=== PATIENT | female | born 1970 | race Caucasian/White ===

== ENCOUNTER 2018-04-27 15:53 | Emergency (ER) | payer OTHER ==
--- NOTE | 2018-04-27 16:59 | PDOC ---
History of Present Illness - General Chief Complaint: Blood Pressure Problem Stated Complaint: ABNORMAL EKG Time Seen by Provider: 04/27/18 16:11 History Source: Patient Exam Limitations: Language Barrier - History of Present Illness Initial Comments: 47 yo F w a hx of HTN presents to the ER from her PCP - Dr. Collin Rojas - for asymptomatic high BP. She states nothing is bothering her here in the ED. She denies having a headache, chest pain, SOB, difficulty breathing, abdominal pain, back pain, leg pain, blurry vision. She takes lisinopril 40 mg daily and states she is good about taking her medicine and doesn't miss any doses. She denies recent fevers, chills, or infections, weakness, numbness, tingling, dysuria, frequency, urgency. PCP: Collin Rojas - [phone] Social Hx: Denies smoking, drinking, illicit drug usage PSH: Tubes tied Allergies: NKA, NKDA Meds: Lisinopril 40 mg daily Past History - Past Medical History Allergies/Adverse Reactions: Allergies Allergy/AdvReac Type Severity Reaction Status Date / Time No Known Allergies Allergy Verified 04/27/18 16:25 Home Medications: Ambulatory Orders Lisinopril [Zestril] 40 mg PO DAILY 04/27/18 Review of Systems - Review of Systems Comments:: CONSTITUTIONAL: Absent: fever, no chills, no fatigue EYES: Absent: visual changes ENT: Absent: ear pain, no sore throat CARDIOVASCULAR: Absent: chest pain, no palpitations RESPIRATORY: Absent: cough, no SOB GI: Absent: abdominal pain, no nausea, no vomiting, no constipation, no diarrhea GENITOURINARY: Absent: dysuria, no frequency, no hematuria MUSKULOSKELETAL: Absent: back pain, no arthralgia, no myalgia SKIN: Absent: rash NEURO: Absent: headache *Physical Exam - Physical Exam Comments: BP: 175/110 GENERAL: Well-appearing, well-nourished. No apparent distress. HEENT: Normocephalic, atraumatic. PERRL, EOM intact. CARDIOVASCULAR: Normal S1, S2. Regular rate and rhythm. PULMONARY: Clear to auscultation bilaterally. ABDOMEN: Soft, non-distended, non-tender. EXTREMITIES: Normal ROM in all four extremities. No gross deformities. SKIN: Warm, dry. No rash NEUROLOGICAL: No focal neurological deficits. ED Treatment Course - LABORATORY CBC & Chemistry Diagram: 04/27/18 17:15 04/27/18 17:15 - RADIOLOGY Radiology Studies Ordered: Category Date Time Status CHEST PA & LAT [RAD] Stat Radiology 04/27/18 16:57 Ordered Medical Decision Making - Medical Decision Making 47 yo F w a hx of HTN presents to the ER from her PCP - Dr. Collin Rojas - for asymptomatic high BP. DD includes but not limited to: Stroke, cva, htn emerg/urg, ACS, pulmonary edema /pleural effusion, dissection, asymptomatic HTN. Plan: Cbc, cmp, trop, ua, ekg, cxr, hcg, re-assess. Labs and cxr normal. Will inform patient she needs to goto PCP to have her BP medications changed to get her BP under better control. *DC/Admit/Observation/Transfer Diagnosis at time of Disposition: Asymptomatic hypertension - Discharge Dispostion Disposition: HOME Condition at time of disposition: Stable Decision to Admit order: No - Referrals Referrals: Waylon Clements MD [Staff Physician] - - Patient Instructions Printed Discharge Instructions: Malignant Hypertension, DI for High Blood Pressure Additional Instructions: You came into the ER with high blood pressure. We determined you are not in hypertensive emergency/urgency Please make sure to goto a professor of theatre as an outpatient to be evaluated. We are attaching a number for you to call to schedule an appointment. Please make sure to goto your primary doctor so he can add on extra BP medications because your blood pressure every day is not being well controlled. Come back with any new or worsening concerns. Thank you for coming to the [facility] ED. We hope you feel better soon! Print Language: MACEDONIAN - Post Discharge Activity
[2018-04-27 17:00] VITALS: BMI 21.2
[2018-04-27 17:22] LABS: BASO % 0.4 % (0-2.0); EOS % 0.1 % (0-4.5); HEMATOCRIT 38.9 % (32.4-45.2); HEMOGLOBIN 13.5 GM/dL (10.7-15.3); LYMPH % 19.6 % (8-40); MCH 28.9 pg (25.7-33.7); MCHC 34.8 g/dl (32.0-36.0); MEAN PLT VOLUME 8.4 fl (7.5-11.1); MONO % 5.5 % (3.8-10.2); NEUT % 74.4 % (42.8-82.8); PLATELET COUNT 288 K/MM3 (134-434); RBC 4.69 M/mm3 (3.60-5.2); RDW 13.2 % (11.6-15.6); WHITE BLOOD COUNT 6.6 K/mm3 (4.0-10.0)
[2018-04-27] MEDS ORDERED: SODIUM CHLORIDE 0.9% 500 ML INFUS.BAG IV ONE (17:31)
[2018-04-27 17:53] LABS: URINE APPEARANCE CLEAR; URINE BILIRUBIN NEGATIVE (<2.0 mg/dL); URINE COLOR COLORLESS; URINE GLUCOSE (UA) NEGATIVE (NEGATIVE); URINE KETONE NEGATIVE (NEGATIVE); URINE LEUK ESTERASE NEGATIVE (NEGATIVE); URINE NITRITE NEGATIVE (NEGATIVE); URINE PROTEIN NEGATIVE (NEGATIVE); URINE UROBILINOGEN NEGATIVE mg/dL (0.2-1.0)
[2018-04-27 17:54] LABS: HCG,QUALITATIVE URINE Negative
[2018-04-27 18:02] LABS: ALBUMIN 4.3 g/dl (3.4-5.0); ALK PHOS 88 U/L (45-117); ANION GAP 9 MMOL/L (8-16); BILIRUBIN,TOTAL 0.4 mg/dL (0.2-1); BLOOD UREA NITROGEN 11 mg/dL (7-18); CALCIUM 9.3 mg/dL (8.5-10.1); CHLORIDE 106 mmol/L (98-107); CO2 26 mmol/L (21-32); CREATININE 0.8 mg/dL (0.55-1.3); GLUCOSE,RANDOM 122 mg/dL (74-106); POTASSIUM 3.5 mmol/L (3.5-5.1); SGOT/AST 18 U/L (15-37); SGPT/ALT 24 U/L (13-61); SODIUM 140 mmol/L (136-145); TOT PROT 8.4 g/dl (6.4-8.2)
[2018-04-27] MEDS ORDERED: LORazepam 2 MG/ML SDV VIAL ONE (18:22)
--- NOTE | 2018-04-27 18:57 | PDOC ---
Attending Attestation - Resident Resident Name: Dusty Stanford - ED Attending Attestation I have performed the following: I have examined & evaluated the patient, The case was reviewed & discussed with the resident, I agree w/resident's findings & plan, Exceptions are as noted - HPI HPI: 04/27/18 18:56 47 F with h/o HTN presents to ED after being sent by PMD for elevated BP. Pt denies an symptoms whatsoever. Denies CP/SOB. Denies MORIN. Denies palpitations. Denies leg swelling. Pt with BP 170/100 initially. States she takes Lisinopril 40mg daily and has been compliant. Pt endorses severe anxiety, which she believes may be affecting her BP. She states that she is currently very anxious given the situation and is worried about her heart. Pt denies ETOH/caffeine/drugs. - Physicial Exam PE: 04/27/18 19:00 "GENERAL: Awake, alert, and fully oriented, in no acute distress. HEAD: No signs of trauma EYES: PERRLA, EOMI, sclera anicteric, conjunctiva clear ENT: Auricles normal inspection, hearing grossly normal, nares patent, oropharynx clear without exudates. Moist mucosa NECK: Nontender, no stepoffs, Normal ROM, supple, no lymphadenopathy, JVD, or masses LUNGS: Breath sounds equal, clear to auscultation bilaterally. No wheezes, and no crackles HEART: Regular rate and rhythm, normal S1 and S2, no murmurs, rubs or gallops ABDOMEN: Soft, nontender, normoactive bowel sounds. No guarding, no rebound. No masses EXTREMITIES: Normal range of motion, no edema. No clubbing or cyanosis. No cords, erythema, or tenderness NEUROLOGICAL: Cranial nerves II through XII intact. 5/5 strength and sensation in all extremities, Normal speech, normal gait, normal cerebellar function SKIN: Warm, Dry, normal turgor, no rashes or lesions noted. - Medical Decision Making 04/27/18 19:00 47 F sent to ER for elevated BP. Pt with no symptoms at this time other than anxiety about her health. EKG shows no acute changes. In ED, pt noted to be tachycardic and hypertensive. Suspect this is 2/2 anxiety. - Labs, TSH - Ativan 2mg IV - Reassess 04/27/18 19:15 Labs wnl XR negative on my read Pt reassessed after ativan, HR now 80s, BP 120/80. Pt states she feels very well Pt is well appearing, with normal vitals. Clinically stable for DC at this time. I discussed the physical exam findings, ancillary test results and final diagnoses with the patient. I answered all of the patient's questions. The patient was satisfied with the care received and felt comfortable with the discharge plan and treatment plan. The patient agrees to follow up with the primary care physician within 24-72 hours.
[2018-04-27 20:36] VITALS: BP 141/92; PULSE 89; TEMP 98.1
--- NOTE | 2018-04-28 10:29 | EKG ---
Test Reason : Blood Pressure : / mmHG Vent. Rate : 108 BPM Atrial Rate : 108 BPM P-R Int : 168 ms QRS Dur : 092 ms QT Int : 362 ms P-R-T Axes : 060 006 045 degrees QTc Int : 485 ms SINUS TACHYCARDIA BIATRIAL ENLARGEMENT INCOMPLETE RIGHT BUNDLE BRANCH BLOCK ABNORMAL ECG NO PREVIOUS ECGS AVAILABLE Confirmed by TOLU SYKES, ALONA ([id number]) on 04/28/2018 10:29:06 AM Referred By: Confirmed By:ALONA MOTLEY MD
== END 2018-04-27 20:36 | disposition home or self-care (01) ==
LOC: JER 15:53
PROC: 3E0337Z Introduction of Electrolytic and Water Balance Substance into Peripheral Vein, Percutaneous Approach (ICD-10-PCS; principal; 2018-04-27)
PROC: 3E033NZ Introduction of Analgesics, Hypnotics, Sedatives into Peripheral Vein, Percutaneous Approach (ICD-10-PCS; 2018-04-27)
DX: I10 Essential (primary) hypertension (principal)
CPT/HCPCS: 36415; 71046-TC-FY; 80053; 81003; 84443; 84484; 84703; 85025; 93005; 93010; 99285-25